=== PATIENT | female | born 1975 | race African-American/Black ===

== ENCOUNTER 2018-10-21 23:57 | Emergency (ER) | payer OTHER ==
[~2018-10-21] VITALS: Ht 165.1 cm; Wt 83.9 kg
[~2018-10-21 23:57] MED LIST: NKM
[2018-10-22] VITALS: BP 136/80
--- NOTE | 2018-10-22 00:03 | Emergency Room Report ---
History of Present Illness General Chief Complaint: Alcohol Intoxication Source: Patient, EMS Present Illness HPI Is a 43-year-old female brought in by EMS for alcohol intoxication. She was drinking alcohol tonight. Somebody dropped her off and then called 911. Patient denies any drug use. No nausea no vomiting. No fever chills. Denies any other complaint. No injury. Allergies: Coded Allergies: PENICILLINS (Unverified Allergy, Unknown, 05/31/14) Patient History Past Medical History: see triage record, old chart reviewed Past Surgical History: other Pertinent Family History: none Social History: Reports: alcohol use Last Menstrual Period: 10/07/18 Now: No Reviewed Nursing Documentation: PMH: Agreed; PSxH: Agreed Nursing Documentation-PMH Past Medical History: No Stated History Review of Systems Eye: Denies: eye pain, blurred vision ENT: Denies: ear pain, nose congestion, throat swelling Respiratory: Denies: cough, shortness of breath Cardiovascular: Denies: chest pain, palpitations Gastrointestinal: Denies: abdominal pain, diarrhea, nausea, vomiting Musculoskeletal: Denies: back pain, joint pain Skin: Denies: rash Neurological: Denies: headache, numbness Endocrine: Denies: increased thirst, increased urine Hematologic/Lymphatic: Denies: easy bruising All Other Systems: negative except mentioned in HPI Physical Exam Vital Signs Date Time Temp Pulse Resp B/P (MAP) Pulse Ox O2 Delivery O2 Flow Rate FiO2 10/21/18 23:43 97.9 82 18 136/80 99 Room Air vitals normal Sp02 EP Interpretation: reviewed, normal General Appearance: well appearing, no apparent distress, alert, other - Intoxicated Head: normocephalic, atraumatic Eyes: bilateral eye PERRL, bilateral eye EOMI ENT: hearing grossly normal, normal pharynx Neck: full range of motion, supple, no meningismus Respiratory: chest non-tender, lungs clear, normal breath sounds Cardiovascular #1: regular rate, rhythm, no murmur Gastrointestinal: normal bowel sounds, non tender, no mass, no organomegaly, no bruit, non-distended Musculoskeletal: back normal, normal range of motion Psychiatric: mood/affect normal Skin: warm/dry Medical Decision Making Diagnostic Impression: Primary Impression: Acute alcoholic intoxication Qualified Codes: F10.920 - Alcohol use, unspecified with intoxication, uncomplicated ER Course Patient with alcohol intoxication. No trauma to warrant x-ray or CT scan. We' ll observe until clinical sobriety. We'll discharge home. Last Vital Signs Date Time Temp Pulse Resp B/P (MAP) Pulse Ox O2 Delivery O2 Flow Rate FiO2 10/21/18 23:43 97.9 82 18 136/80 99 Room Air Status: improved Disposition: HOME, SELF-CARE Condition: Stable Patient Instructions: Alcohol Intoxication, [id number] Additional Instructions: Abstain from drinking alcohol. Follow-up with your Dr. in 7 days. Return if worse. Tal Morris MD Oct 22, 2018 00:03
--- NOTE | 2018-10-22 00:05 | NUR ---
ED Nurse Note: Patient brought in by ambulance c/o ETOH intoxication, at time of arrival patient is able to answer questions to staff, denies any pain, states "i drank alot". Patient is alert and oriented and knows where shes at, no head trauma noted. Patient states "i just want to sleep"
--- NOTE | 2018-10-22 03:10 | NUR ---
HAND-OFF: Report received from Ruben DAVIS.
--- NOTE | 2018-10-22 03:15 | NUR ---
ED Nurse Note: Patient ambulated with unsteady gait to restroom, with 1 person assist.
--- NOTE | 2018-10-22 04:15 | NUR ---
ED Nurse Note: Patient sleeping, no s/s of acute distress, chest rise and fall symmetric.
--- NOTE | 2018-10-22 05:10 | NUR ---
ED Nurse Note: Patient still sleeping soundly.
--- NOTE | 2018-10-22 06:10 | NUR ---
ED Nurse Note: Patient discharged in stable condition, A&Ox4, ambulatory with steady gait. Patient plans to catch the bus home. patient verbalized understanding of discharge instructions and departed with all belongings. Patient was also provided with a warm top and jacket.
[2018-10-22 06:14] VITALS: BP 136/80
== END 2018-10-22 06:15 | disposition home or self-care (01) ==
LOC: EDBD 23:57 → EMR 23:59
DX: F10.920 Alcohol use, unspecified with intoxication, uncomplicated (principal); Z88.0 Allergy status to penicillin
CPT/HCPCS: 99282